=== PATIENT | female | born 1970 | race Caucasian/White ===

== ENCOUNTER 2018-07-25 16:50 | Inpatient (IN) | payer OTHER ==
[~2018-07-25] VITALS: Ht 170.2 cm; Wt 83.9 kg
[2018-07-29] MEDS ORDERED: ACETAMINOPHEN500 M1 PO (14:02)
[2018-07-29] MEDS ORDERED: Ferro-Plex CAPLET PO (14:03)
[2018-07-29] MEDS ORDERED: NABUMETONE750 MG PO (14:03)
== END 2018-07-29 15:24 | disposition home or self-care (01) | DRG 742 ==
LOC: OB/GYN 07-27 07:04 → O/R 07-27 07:04 → OB/GYN 07-27 10:52 → O/R 07-27 13:11 → OB/GYN 07-27 13:36
PROVIDERS: Surgery; ADMIT Obstetrics & Gynecology
PROC: 0YU60JZ Supplement Left Inguinal Region with Synthetic Substitute, Open Approach (ICD-10-PCS; 2018-07-27)
PROC: 0UT90ZZ Resection of Uterus, Open Approach (ICD-10-PCS; principal; 2018-07-27 11:30)
PROC: 0UT70ZZ Resection of Bilateral Fallopian Tubes, Open Approach (ICD-10-PCS; 2018-07-27 11:30)
DX: D25.1 Intramural leiomyoma of uterus (principal); K40.30 Unilateral inguinal hernia, with obstruction, without gangrene, not specified as recurrent; D25.0 Submucous leiomyoma of uterus; D25.2 Subserosal leiomyoma of uterus; N83.8 Other noninflammatory disorders of ovary, fallopian tube and broad ligament; N72 Inflammatory disease of cervix uteri